=== PATIENT | male | born 1970 | race Caucasian/White ===

== ENCOUNTER 2020-10-04 16:05 | Inpatient (IN) | payer MEDICAID, OTHER ==
[~2020-10-04] VITALS: Ht 190.5 cm; Wt 77.9 kg
--- NOTE | 2020-10-04 16:36 | NUR ---
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
--- NOTE | 2020-10-04 16:55 | NUR ---
PT TO ED WITH N/V/D X4 DAYS POST SURGERY. PT HAS SKIN CANCER (MELAMNOMA) REMOVED FROM RIGHT NECK ALONG WITH LYMPHADECTOMY ON RIGHT NECK/CHEST. PT ALSO TAKING ORAL CHEMO X1 MONTH. PT DENIES NAYH OTHER MEDICAL C/O AT THIS TIME. PT PLACED ON MONITORING, CALL LIGHT WITHIN REACH, ALL SAFETY MEASURES IN PLACE.
--- NOTE | 2020-10-04 17:00 | NUR ---
REPORT GIVEN TO SABRA CABRERA.
[2020-10-04] MEDS ORDERED: ONDANSETRON 2MG/ML, 2ML IVPush ONE (17:30)
[2020-10-04] MEDS ORDERED: SODIUM CHLORIDE 0.9% 1,000ML IVBOLUS ONE (17:30)
[2020-10-04] MEDS ORDERED: MORPHINE SULFATE 4 MG/ML, 1ML IVPush PRN (17:30)
[2020-10-04] MEDS ORDERED: ONDANSETRON 2MG/ML, 2ML ONE (17:34)
[2020-10-04] MEDS ORDERED: MORPHINE SULFATE 4 MG/ML, 1ML ONE (17:35)
--- NOTE | 2020-10-04 17:40 | NUR ---
IV started, labs drawn, and blood cultures x 2 drawn. NS hung and medicated per eMAR. Provided with blankets. No other needs at this time.
[2020-10-04 17:50] LABS: BASOPHILS % (AUTO) 0 % (0-1); EOSINOPHILS % (AUTO) 0 % (1-7); LYMPHOCYTES % (AUTO) 10 % (22-44); MEAN CORPUSCULAR HEMOGLOBIN 30.8 pg (27.5-34.5); MEAN CORPUSCULAR HGB CONC 35.1 g/dL (33.2-36.2); MEAN PLATELET VOLUME 7.8 fL (7.4-10.4); MONOCYTES % (AUTO) 7 % (2-9); NEUTROPHILS % (AUTO) 82 % (42-75); PLATELET COUNT 117 x10^3/uL (130-400); RED BLOOD COUNT 4.67 x10^6/uL (4.38-5.82); RED CELL DISTRIBUTION WIDTH 12.6 % (9.4-14.8)
[2020-10-04 17:51] LABS: MD NO
[2020-10-04 17:58] LABS: ALANINE AMINOTRANSFERASE 100 U/L (12-78); ALBUMIN 3.5 g/dL (3.4-5.0); ANION GAP 12 mmol/L (5-15); CALCIUM 9.2 mg/dL (8.5-10.1); CHLORIDE 91 mmol/L (98-107); CREATININE 0.99 mg/dL (0.7-1.3)
[2020-10-04 18:00] LABS: ALKALINE PHOSPHATASE 123 U/L (45-117); BILIRUBIN,TOTAL 0.5 mg/dL (0.2-1.0); TOTAL PROTEIN 7.4 g/dL (6.4-8.2)
[2020-10-04 18:40] LABS: MICROSCOPIC INDICATED
--- NOTE | 2020-10-04 18:45 | NUR ---
Resting in [facility]. No needs.
[2020-10-04 18:57] LABS: CHLORIDE,URINE RANDOM < 10 mmol/L; POTASSIUM,URINE RANDOM 27 mmol/L; SODIUM,URINE RANDOM 15 mmol/L
[2020-10-04] MEDS ORDERED: OMNIPAQUE 350 MG/ML, 100ML BOTTLE ONE (18:58)
--- NOTE | 2020-10-04 20:00 | NUR ---
VSS. Plan is for admit. Repositioned for comfort.
--- NOTE | 2020-10-04 20:34 | NUR ---
REPORT RECEIVED FROM DEBORAH MONTAÑO AT THIS TIME. DR. AKHTAR ENTERING ROOM AT THIS TIME. RN NOTIFIED HIM THAT PATIENT IS REQUESTING FOOD
[2020-10-04] MEDS ORDERED: ONDA4TAB7 PO (20:51)
[2020-10-04] MEDS ORDERED: CEPH750C9 PO (20:51)
[2020-10-04] MEDS ORDERED: OXYC5TAB2 PO (20:51)
[2020-10-04] MEDS ORDERED: TRAM2TAB PO (20:51)
[2020-10-04] MEDS ORDERED: DABR75CA PO (20:51)
[2020-10-04] MEDS ORDERED: ONDANSETRON ODT 4 MG PO PRN (21:00)
[2020-10-04] MEDS ORDERED: hydrALAzine 20 MG/ML, 1ML IVPush PRN (21:00)
[2020-10-04] MEDS ORDERED: DOCUSATE 100 MG CAPSULE PO PRN (21:00)
[2020-10-04] MEDS ORDERED: morphine SULFATE 10 MG/ML, 1ML IVPush PRN (21:00)
[2020-10-04] MEDS ORDERED: CEPHALEXIN 500 MG PO SCH (21:00)
[2020-10-04] MEDS ORDERED: PROMETHAZINE 25 MG/ML, 1ML IM PRN (21:00)
[2020-10-04] MEDS ORDERED: ONDANSETRON 2MG/ML, 2ML IVPush PRN (21:00)
[2020-10-04] MEDS ORDERED: HYDROcodone/APAP 5/325 TABLET PO PRN (21:00)
[2020-10-04] MEDS ORDERED: CEPHALEXIN 500 MG CAPSULE PO SCH (21:00)
--- NOTE | 2020-10-04 21:03 | NUR ---
DR. AKHTAR CALLED AND NOTIFIED AT THIS TIME THAT MED REC IS COMPLETED AND PATIENT IS ALSO ON NEOPLASTIC MEDICATIONS DAILY. DR. AKHTAR NOTIFIED RN THAT BEFORE THESE ARE ORDERED FOR INPATIENT HOSPITALIZATION, ONCOLOGY WILL NEED TO BE CONSULTED IN THE MORNING FIRST.
[2020-10-04] MEDS ORDERED: CEPHALEXIN 500 MG CAPSULE ONE (21:51)
--- NOTE | 2020-10-04 22:02 | NUR ---
PATIENT AMBULATED UP TO BATHROOM WITH STEADY GAIT. SOB ON RETURN TO BED. SNACKS PROVIDED AND SANDWICH AND PATIENT STATES NAUSEA HAS RESOLVED AND CHRONIC PAIN IS FLARING UP MORE THAN ABDOMEN. ABDOMINAL PAIN 3/10 AND PATIENT DECLINES MEDICATIONS AT THIS TIME FOR MANAGEMENT. VS REMAIN STABLE. CALL ROCHE IN REACH. SAFETY MAINTAINED. WILL CONTINUE TO MONITOR.
[2020-10-04] MEDS ORDERED: ENOXAPARIN 40 MG/0.4 ML ONE (22:08)
[2020-10-04] MEDS: ENOXAPARIN 40 MG/0.4 ML SQ SCH (22:13)
--- NOTE | 2020-10-04 22:20 | NUR ---
PATIENT DECLINED LOVENOX SQ INJECTION. RN EDUCATED PATIENT ON THIS AND REASON OF IMPORTANCE AND PATIENT OPTED TO RECEIVE THIS MEDICATION. IN NAD. NO FURTHER NEEDS AT THIS TIME
--- NOTE | 2020-10-04 22:30 | NUR ---
REPORT GIVEN TO CARLO ON 3NE
[2020-10-04] MEDS: D5%-0.9% NACL+KCL 20MEQ 1,000 ML IV SCH (22:33)
--- NOTE | 2020-10-04 22:40 | NUR ---
IVF ORDERED STARTED. CARLO MONTAÑO CALLED AGAIN BY MYSELF TO REPORT PATIENT HAD CHEMO MED WITH HIM IN A BAG THAT HIS HAD LEFT. THIS ONE IS DUE TONIGHT BUT DUE TO DR. AKHTAR'S RESPONSE TO MY NOTIFICATION THAT MED REC WAS COMPLETED AND PATIENT HAD NEOPLASTIC MEDS , I WAS NOT SURE IF THESE SHOULD BE ADMIN TONIGHT. CARLO MADE AWARE AND TO POSSIBLY CHECK WITH DR. AKHTAR. ALL PERSONAL BELONGINGS WITH PATIENT. TOOK SOME HOME WITH HER. VS REMAIN STABLE ON RA PRIOR TO TRANSPORT
[2020-10-04] MEDS: DABRAFENIB MESYLATE HOMEMEDPO SCH (23:00)
[2020-10-04] MEDS: ACETAMINOPHEN 325 MG TABLET PO PRN (23:18)
[2020-10-04 23:20] VITALS: BP 110/69
[2020-10-05 00:14] VITALS: BP 101/63
[2020-10-05 00:49] LABS: ANION GAP 8 mmol/L (5-15); CALCIUM 8.4 mg/dL (8.5-10.1); CHLORIDE 97 mmol/L (98-107); CREATININE 0.93 mg/dL (0.7-1.3)
[2020-10-05 05:55] LABS: MEAN CORPUSCULAR HEMOGLOBIN 31.1 pg (27.5-34.5); MEAN CORPUSCULAR HGB CONC 34.9 g/dL (33.2-36.2); MEAN PLATELET VOLUME 9.1 fL (7.4-10.4); PLATELET COUNT 111 x10^3/uL (130-400); RED BLOOD COUNT 4.28 x10^6/uL (4.38-5.82); RED CELL DISTRIBUTION WIDTH 12.6 % (9.4-14.8)
[2020-10-05 05:59] LABS: CHOL/HDL RATIO 3.3; LDL/HDL RATIO 1.7 (0.5-3.0)
[2020-10-05 06:12] LABS: MD YES
[2020-10-05 06:15] LABS: BAND#(MANUAL) 0.61 x10^3/uL; BANDS%(MANUAL) 16 % (0-7); LYMPH#(MANUAL) 0.76 x10^3/uL (1-3.4); LYMPHS% (MANUAL) 20 % (22-44); METAMYELOCYTES# (MANUAL) 0.11 x10^3/uL (0-0); METAMYELOCYTES% (MANUAL) 3 % (0-1); MONOS% (MANUAL) 8 % (2-9); SEG#(MANUAL) 2.01 x10^3/uL (1.8-6.8); SEGS% (MANUAL) 53 % (42-75)
[2020-10-05 06:16] LABS: <PLATELET ESTIMATE> DECREASED; <PLT MORPHOLOGY> NORMAL PLT MORPH; <RBC MORPHOLOGY> NORMAL; PMNS WITH VACUOLES 1+
[2020-10-05 06:20] LABS: ANION GAP 3 mmol/L (5-15); CALCIUM 8.5 mg/dL (8.5-10.1); CHLORIDE 103 mmol/L (98-107); CREATININE 0.92 mg/dL (0.7-1.3)
[2020-10-05 06:27] VITALS: BP 111/73
[2020-10-05] MEDS: ACETAMINOPHEN 325 MG TABLET PO PRN ×2 (08:11→15:24)
[2020-10-05] MEDS: CEPHALEXIN 500 MG CAPSULE PO SCH ×3 (08:12→21:16)
[2020-10-05] MEDS: DABRAFENIB MESYLATE HOMEMEDPO SCH ×2 (09:00→21:00)
[2020-10-05] MEDS: TRAMETINIB DIMETHYL SULFOXIDE 2 MG HOMEMEDPO SCH (09:00)
[2020-10-05] MEDS: D5%-0.9% NACL+KCL 20MEQ 1,000 ML IV SCH (09:40)
[2020-10-05 13:02] VITALS: BP 122/73
[2020-10-05 13:22] LABS: ANION GAP 6 mmol/L (5-15); CALCIUM 8.2 mg/dL (8.5-10.1); CHLORIDE 103 mmol/L (98-107); CREATININE 0.85 mg/dL (0.7-1.3)
[2020-10-05 13:40] LABS: CLOSTRIDIUM DIFFICILE ANTIGEN NEGATIVE; CLOSTRIDIUM DIFFICILE TOXIN NEGATIVE (Negative)
[2020-10-05 19:10] LABS: ANION GAP 6 mmol/L (5-15); CALCIUM 8.5 mg/dL (8.5-10.1); CHLORIDE 101 mmol/L (98-107); CREATININE 0.83 mg/dL (0.7-1.3)
[2020-10-05 19:36] VITALS: BP 116/73
[2020-10-05] MEDS: ENOXAPARIN 40 MG/0.4 ML SQ SCH (21:00)
[2020-10-06 00:50] VITALS: BP 110/66
[2020-10-06 01:03] LABS: ANION GAP 3 mmol/L (5-15); CALCIUM 8.3 mg/dL (8.5-10.1); CHLORIDE 102 mmol/L (98-107)
[2020-10-06 01:05] LABS: CREATININE 0.78 mg/dL (0.7-1.3)
[2020-10-06] MEDS ORDERED: OMEPRAZOLE 20 MG CAPSULE.DR PO SCH (06:00)
[2020-10-06 07:23] LABS: MEAN CORPUSCULAR HEMOGLOBIN 30.7 pg (27.5-34.5); MEAN CORPUSCULAR HGB CONC 34.2 g/dL (33.2-36.2); MEAN PLATELET VOLUME 9.3 fL (7.4-10.4); PLATELET COUNT 109 x10^3/uL (130-400); RED BLOOD COUNT 4.21 x10^6/uL (4.38-5.82); RED CELL DISTRIBUTION WIDTH 12.8 % (9.4-14.8)
[2020-10-06 07:36] VITALS: BP 109/70
[2020-10-06 07:44] LABS: MD YES
[2020-10-06 07:46] LABS: BAND#(MANUAL) 0.96 x10^3/uL; BANDS%(MANUAL) 30 % (0-7); EOS#(MANUAL) 0.06 x10^3/uL (0.0-0.4); EOS% (MANUAL) 2 % (1-7); LYMPH#(MANUAL) 0.93 x10^3/uL (1-3.4); LYMPHS% (MANUAL) 29 % (22-44); MONOS#(MANUAL) 0.16 x10^3/uL (0.3-2.7); MONOS% (MANUAL) 5 % (2-9); REACTIVE LYMPHS # (MANUAL) 0.03 x10^3/uL (0-0); REACTIVE LYMPHS % (MANUAL) 1 % (0-0); SEG#(MANUAL) 1.06 x10^3/uL (1.8-6.8); SEGS% (MANUAL) 33 % (42-75)
[2020-10-06 07:47] LABS: <PLATELET ESTIMATE> DECREASED; <PLT MORPHOLOGY> NORMAL PLT MORPH; <RBC MORPHOLOGY> NORMAL
[2020-10-06] MEDS: TRAMETINIB DIMETHYL SULFOXIDE 2 MG HOMEMEDPO SCH (09:46)
[2020-10-06] MEDS: DABRAFENIB MESYLATE HOMEMEDPO SCH (09:46)
[2020-10-06] MEDS: CEPHALEXIN 500 MG CAPSULE PO SCH (09:48)
[2020-10-06] MEDS ORDERED: DABR75CA PO (10:10)
[2020-10-06 12:39] VITALS: BP 123/77
== END 2020-10-06 13:18 | disposition home or self-care (01) | DRG 641 ==
LOC: ED 18:35 → EDIP 20:36 → 3N 22:41 → 4NW 10-05 08:46 → DCLOUNGE 10-06 13:07
PROVIDERS: ADMIT Internal Medicine; ATTEND Hospitalist
DX: E87.1 Hypo-osmolality and hyponatremia (principal); C43.9 Malignant melanoma of skin, unspecified; E86.0 Dehydration; F17.290 Nicotine dependence, other tobacco product, uncomplicated; Z85.820 Personal history of malignant melanoma of skin
CPT/HCPCS: 36415; 71045; 74177; 80048; 80053; 80061; 81001; 82436; 83036; 83605; 83690; 83735; 83930; 83935; 84100; 84133; 84300; 84439; 84443; 85025; 87040; 87046; 87324; 87427; 89055; 96361; 96374; 96375; 99291; G0378; J1650; J2405; Q9967; J2270; J3480; J7030